=== PATIENT | female | born 2000 | race Caucasian/White ===

== ENCOUNTER → 2020-12-03 | Outpatient (CLI) | payer BC, OTHER, SELFPAY | END | disposition home or self-care (01) | LOC: NPLAB 09:49 | PROVIDERS: ATTEND Internal Medicine | DX: Z20.822 Contact with and (suspected) exposure to COVID-19 (principal) | CPT/HCPCS: 87633 ==

== ENCOUNTER → 2021-02-11 | Outpatient (CLI) | payer BC | END | disposition home or self-care (01) | LOC: NPLAB 08:16 | PROVIDERS: ATTEND Internal Medicine | DX: Z11.52 Encounter for screening for COVID-19 (principal); Z20.822 Contact with and (suspected) exposure to COVID-19 | CPT/HCPCS: 87633 ==

== ENCOUNTER → 2021-02-24 | Outpatient (CLI) | payer BC | END | disposition home or self-care (01) | LOC: NPLAB 15:36 | PROVIDERS: ATTEND Internal Medicine | DX: Z11.52 Encounter for screening for COVID-19 (principal); Z20.822 Contact with and (suspected) exposure to COVID-19 | CPT/HCPCS: 87426 ==